=== PATIENT | male | born 1950 | race Caucasian/White ===

== ENCOUNTER 2018-08-12 15:36 | Emergency (ER) | payer BC, SELFPAY ==
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
[2018-08-12 17:05] VITALS: BP 154/73; PULSE 84; RESP 16; TEMP 36.7; O2SAT 97
== END 2018-08-12 17:51 | disposition home or self-care (01) ==
LOC: ER 16:43
PROVIDERS: Emergency Provider Emergency Medicine
DX: S01.81XA Laceration without foreign body of other part of head, initial encounter (principal); V17.5XXA Pedal cycle passenger injured in collision with fixed or stationary object in traffic accident, initial encounter; I48.91 Unspecified atrial fibrillation; Z79.82 Long term (current) use of aspirin
CPT/HCPCS: 12013